=== PATIENT | female | born 1955 | race Hispanic/Latino ===

== ENCOUNTER 2022-02-22 18:51 | Emergency (ER) | payer SELFPAY ==
[~2022-02-22] VITALS: Ht 165.1 cm; Wt 83.9 kg
== END 2022-02-22 19:20 | disposition home or self-care (01) ==
LOC: ER 18:53
DX: H11.32 Conjunctival hemorrhage, left eye (principal); I10 Essential (primary) hypertension
CPT/HCPCS: 99282